=== PATIENT | male | born 1990 | race Caucasian/White ===

== ENCOUNTER → 2022-09-08 08:50 | Outpatient (CLI) | payer MEDICARE, MEDICAID, SELFPAY | PROVIDERS: PCP Family Medicine; Visit Provider Physician Assistant Medical | DX: J02.9 Acute pharyngitis, unspecified (principal) | CPT/HCPCS: 87070 ==

== ENCOUNTER → 2022-09-20 08:46 | Outpatient (CLI) | payer MEDICARE, MEDICAID, SELFPAY ==
[2022-09-20 19:37] LABS: Alanine Aminotransferase 67 IU/L (<50); Albumin 3.9 g/dL (3.5-5.0); Albumin Globulin Ratio 1.3 (1.0-2.8); Alkaline Phosphatase 57 U/L (38-126); Aspartate Aminotransferase 39 IU/L (17-59); BUN Creatinine Ratio 17.2 (6-22); Bilirubin Total 0.6 mg/dL (0.2-1.3); Blood Urea Nitrogen 15 mg/dL (9-20); Calcium 9.1 mg/dL (8.4-10.2); Carbon Dioxide 29 mmol/L (22-32); Chloride 104 mmol/L (98-107); Cholesterol 183 mg/dL (140-199); Estimated Glomerular Filt Rate > 60 mL/min (>60); Globulin 2.9 g/dL (1.7-4.1); Glucose 123 mg/dL (70-100); HDL Cholesterol 38 mg/dL (40-60); HEMOLYSIS < 15 (0-50); LDL Cholesterol Calculated 113 mg/dL (<100); Potassium 4.6 mmol/L (3.4-5.1); Sodium 138 mmol/L (137-145); Total Protein 6.8 g/dL (6.3-8.2); Triglycerides 158 mg/dL (35-150); Uric Acid 7.4 mg/dL (3.5-8.5)
[2022-09-20 19:41] LABS: Add Manual Diff / Slide Review NO; Basophils Absolute Auto 100 /uL (0-100); Basophils Percent Auto 1.1 % (0-2); Eosinophils Absolute Auto 200 /uL (0-450); Eosinophils Percent Auto 2.9 % (2-4); Hematocrit 42.7 % (41-53); Hemoglobin 14.5 g/dL (13.5-17.5); Lymphocytes Absolute Auto 2600 /uL (1100-4500); Lymphocytes Percent Auto 33.2 % (25-40); Mean Corpuscular HGB Conc 33.9 % (30-36); Mean Corpuscular Volume 82.6 fL (80-100); Monocytes Absolute Auto 600 /uL (0-900); Monocytes Percent Auto 7.6 % (3-14); Neutrophils Absolute Auto 4300 /uL (1500-7000); Neutrophils Percent Auto 55.2 % (50-75); Platelet Count 285 X10^3/uL (150-400); Red Blood Cell Count 5.18 X10^6/uL (4.5-5.9); Red Cell Distribution Width 13.1 % (11.6-14.8); White Blood Cell Count 7.9 X10^3/uL (4.5-11.0)
== END ==
PROVIDERS: PCP Family Medicine; Visit Provider Family Medicine
DX: Z13.6 Encounter for screening for cardiovascular disorders (principal); J45.20 Mild intermittent asthma, uncomplicated; Z80.0 Family history of malignant neoplasm of digestive organs; Z83.3 Family history of diabetes mellitus
CPT/HCPCS: 80053; 80061; 83036; 84550; 85025

== ENCOUNTER → 2023-01-04 11:16 | Outpatient (CLI) | payer MEDICARE, MEDICAID, SELFPAY ==
[2023-01-04 20:26] LABS: Alanine Aminotransferase 33 IU/L (<50); Albumin 4.1 g/dL (3.5-5.0); Albumin Globulin Ratio 1.5 (1.0-2.8); Alkaline Phosphatase 52 U/L (38-126); Aspartate Aminotransferase 34 IU/L (17-59); BUN Creatinine Ratio 17.9 (6-22); Bilirubin Total 0.6 mg/dL (0.2-1.3); Blood Urea Nitrogen 20 mg/dL (9-20); Carbon Dioxide 30 mmol/L (22-32); Chloride 104 mmol/L (98-107); Cholesterol 198 mg/dL (140-199); Estimated Glomerular Filt Rate > 60 mL/min (>60); Globulin 2.7 g/dL (1.7-4.1); Glucose 100 mg/dL (70-100); HDL Cholesterol 40 mg/dL (40-60); HEMOLYSIS < 15 (0-50); LDL Cholesterol Calculated 125 mg/dL (<100); Potassium 4.2 mmol/L (3.4-5.1); Sodium 140 mmol/L (137-145); Total Protein 6.8 g/dL (6.3-8.2); Triglycerides 163 mg/dL (35-150)
[2023-01-04 20:54] LABS: TSH w/ Reflex to FT4 0.46 uIU/mL (0.47-4.68)
[2023-01-04 21:14] LABS: Creatinine Urine Random 241.6 mg/dL
[2023-01-04 21:19] LABS: Microalbumi Creatinin Ratio Ur 6.2 ug/mg CR (<30); Microalbumin Urine Random 1.5 mg/dL (0-1.6)
[2023-01-05 22:07] LABS: x Labcorp Estim. Avg Glu (eAG) 128 mg/dL (.); x Labcorp Hemoglobin A1c 6.1 % (4.8-5.6)
== END ==
PROVIDERS: PCP Family Medicine; Visit Provider Family Medicine
DX: E11.65 Type 2 diabetes mellitus with hyperglycemia (principal); I10 Essential (primary) hypertension; E78.2 Mixed hyperlipidemia; R79.89 Other specified abnormal findings of blood chemistry
CPT/HCPCS: 80053; 80061; 82043; 82570; 83036; 84439; 84443

== ENCOUNTER → 2023-03-26 15:49 | Outpatient (CLI) | payer MEDICARE, MEDICAID, SELFPAY | PROVIDERS: PCP Family Medicine; Visit Provider Family Medicine | DX: R07.0 Pain in throat (principal) | CPT/HCPCS: 87070; 87077; 87147 ==

== ENCOUNTER → 2023-04-16 13:26 | Outpatient (CLI) | payer MEDICARE, MEDICAID, SELFPAY ==
[2023-04-16 19:20] LABS: Hemoglobin A1C% w Est Avg Glu 6.1 % (4.0-6.0)
[2023-04-16 19:21] LABS: HEMOLYSIS < 15 (0-50); Sodium 140 mmol/L (137-145)
[2023-04-16 19:23] LABS: Blood Urea Nitrogen 18 mg/dL (9-20); Calcium 9.6 mg/dL (8.4-10.2); Carbon Dioxide 31 mmol/L (22-32); Chloride 103 mmol/L (98-107); Cholesterol 211 mg/dL (140-199); Estimated Glomerular Filt Rate > 60 mL/min (>60); Glucose 93 mg/dL (70-100); HDL Cholesterol 37 mg/dL (40-60); LDL Cholesterol Calculated 110 mg/dL (<100); Potassium 4.1 mmol/L (3.4-5.1); Triglycerides 322 mg/dL (35-150)
[2023-04-16 19:49] LABS: TSH w/ Reflex to FT4 0.54 uIU/mL (0.47-4.68)
== END ==
PROVIDERS: PCP Family Medicine; Visit Provider Family Medicine
DX: E11.9 Type 2 diabetes mellitus without complications (principal); E11.65 Type 2 diabetes mellitus with hyperglycemia; I10 Essential (primary) hypertension; E78.2 Mixed hyperlipidemia
CPT/HCPCS: 80048; 80061; 83036; 84443

== ENCOUNTER → 2023-10-19 15:02 | Outpatient (CLI) | payer MEDICARE, SELFPAY ==
--- NOTE | 2023-10-19 15:06 | DI.MRI.S_ITS ---
PROCEDURE: MR HEAD/BRAIN WO/W CON INDICATIONS: Syncopal versus seizure disorder TECHNIQUE: Noncontrast axial T1 spin echo, axial T2 fast spin echo, sagittal and axial FLAIR, coronal T2 fast spin echo, axial gradient echo, axial diffusion and ADC through the brain. After the administration of contrast, axial and coronal and sagittal 3D VIBE or T1 spin echo with fat saturation through the brain. COMPARISON: None. FINDINGS: Image quality: Excellent. CSF Spaces: Basal cisterns are patent. No extra-axial fluid collections. Ventricles are normal in size and shape. Brain: No midline shift. No intracranial bleeds or masses. No abnormal intracranial enhancement. The brainstem appears normal. Diffusion-weighted images demonstrate no acute infarct. No chronic ischemic insults. Normal intravascular flow voids are present. Mild motion is present through the hippocampi. However, they are grossly symmetrical without abnormal signal, enhancement or mass. Skull and face: Calvarial marrow is normal in signal. Orbits appear normal. Sinuses: Sinuses and mastoids appear clear. IMPRESSION: 1. No acute intracranial process. Dictated by: Rosa Dominguez M.D. on 10/19/2023 at 17:14 Approved by: Rosa Dominguez M.D. on 10/19/2023 at 17:15
== END ==
PROVIDERS: PCP Family Medicine; Referring Provider Family Medicine; Visit Provider Family Medicine
DX: R55 Syncope and collapse (principal); F32.9 Major depressive disorder, single episode, unspecified; E11.9 Type 2 diabetes mellitus without complications; I10 Essential (primary) hypertension; R79.89 Other specified abnormal findings of blood chemistry
CPT/HCPCS: 70553; A9579

== ENCOUNTER → 2023-10-24 14:18 | Outpatient (CLI) | payer MEDICARE, SELFPAY ==
[2023-10-24 19:52] LABS: Alanine Aminotransferase 50 IU/L (<50); Albumin 4.8 g/dL (3.5-5.0); Albumin Globulin Ratio 1.8 (1.0-2.8); Alkaline Phosphatase 58 U/L (38-126); Aspartate Aminotransferase 33 IU/L (17-59); BUN Creatinine Ratio 22.4 (6-22); Bilirubin Total 0.6 mg/dL (0.2-1.3); Blood Urea Nitrogen 22 mg/dL (9-20); Calcium 10.1 mg/dL (8.4-10.2); Carbon Dioxide 25 mmol/L (22-32); Chloride 107 mmol/L (98-107); Estimated Glomerular Filt Rate > 60 mL/min (>60); Globulin 2.6 g/dL (1.7-4.1); Glucose 111 mg/dL (70-100); HEMOLYSIS < 15 (0-50); Potassium 4.4 mmol/L (3.4-5.1); Sodium 142 mmol/L (137-145); Total Protein 7.4 g/dL (6.3-8.2)
[2023-10-24 19:57] LABS: Add Manual Diff / Slide Review NO; Basophils Absolute Auto 100 /uL (0-100); Basophils Percent Auto 0.5 % (0-2); Eosinophils Absolute Auto 300 /uL (0-450); Hematocrit 44.5 % (41-53); Lymphocytes Absolute Auto 3500 /uL (1100-4500); Mean Corpuscular HGB Conc 33.7 % (30-36); Mean Corpuscular Hemoglobin 27.8 PG (26-34); Mean Corpuscular Volume 82.5 fL (80-100); Monocytes Absolute Auto 700 /uL (0-900); Monocytes Percent Auto 5.3 % (3-14); Neutrophils Absolute Auto 8400 /uL (1500-7000); Neutrophils Percent Auto 65.2 % (50-75); Platelet Count 332 X10^3/uL (150-400); Red Blood Cell Count 5.39 X10^6/uL (4.5-5.9); Red Cell Distribution Width 12.9 % (11.6-14.8); White Blood Cell Count 12.9 X10^3/uL (4.5-11.0)
[2023-10-24 20:15] LABS: Hemoglobin A1C% w Est Avg Glu 6.2 % (4.0-6.0)
[2023-10-24 20:16] LABS: Creatinine Urine Random 173.8 mg/dL
[2023-10-24 20:20] LABS: Microalbumin Urine Random 1.4 mg/dL (0-1.6)
[2023-10-24 21:34] LABS: TSH w/ Reflex to FT4 1.45 uIU/mL (0.47-4.68)
== END ==
PROVIDERS: PCP Family Medicine; Visit Provider Family Medicine
DX: R55 Syncope and collapse (principal); I10 Essential (primary) hypertension; E11.9 Type 2 diabetes mellitus without complications; F32.9 Major depressive disorder, single episode, unspecified; R79.89 Other specified abnormal findings of blood chemistry
CPT/HCPCS: 80053; 82043; 82570; 83036; 84443; 85025

== ENCOUNTER 2025-05-01 10:40 | Emergency (ER) | payer BC, SELFPAY ==
[2025-05-01 10:53] VITALS: BP 176/104; PULSE 56; RESP 15; TEMP 36.9; O2SAT 98; BMI 42.8
--- NOTE | 2025-05-01 11:18 | ED_ITS ---
HPI - Abdominal Pain <Bobbi Tapia PA-C - Last Filed: 05/01/25 16:31> General Chief Complaint: Abdominal Pain Stated Complaint: Gallbladder pain. send from PCP had US Yesterday Time Seen by Provider: 05/01/25 10:55 Mode of arrival: Ambulatory History of Present Illness HPI narrative: Mr. Lozano is a pleasant 34-year-old gentleman with a past medical history of asthma, controlled T2 dm, HTN, depression and anxiety who presents to the emergency department for right upper quadrant abdominal pain, nausea, vomiting, diarrhea x5 days. Patient states that he saw his PCP yesterday on [facility], he had an abdominal ultrasound performed which revealed No abnormality seen in the ultrasound of the abdomen with all the standard structures visualized, except for ultrasound Steinberg's sign . Patient was advised to come to the emergency department for advanced imaging and evaluation. Patient states that when he woke up this morning he had worsening right upper quadrant abdominal pain and an episode of bilious vomiting. He reports that he has also been experiencing nonbloody diarrhea for the last few days. Denies chest pain, shortness of breath, documented fevers tobacco use, alcohol use, drug use, dysuria, hematuria, flank pain, radiation of abdominal pain, prior abdominal surgeries. He does report feeling intermittently warm and chills over the last few days. He denies any prior abdominal surgeries. States he is allergic to codeine. He has not had anything to eat since 7:00 p.m. last night, this morning he only had some water and Metamucil. Related Data Home Medications ?Medication ?Instructions ?Recorded ?Confirmed escitalopram oxalate 10 mg tablet 10 mg PO .PRN 04/30/25 Previous Rx's ?Medication ?Instructions ?Recorded albuterol sulfate 90 mcg/actuation 2 puff inhalation Q 6H PRN 04/30/24 aerosol inhaler shortness of breath or wheez ing #8.5 grams ondansetron 4 mg disintegrating 4 mg PO Q8H PRN nausea and 05/01/25 tablet vomiting #20 tabs Allergies Allergy/AdvReac Type Severity Reaction Status Date / Time codeine Allergy Mild Hives Verified 05/01/25 10:53 Review of Systems <Bobbi Tapia PA-C - Last Filed: 05/01/25 16:31> Review of Systems ROS Unobtainable: All systems reviewed & are unremarkable except as noted in HPI and below Patient History <Bobbi Tapia PA-C - Last Filed: 05/01/25 16:31> Medical History Type 2 diabetes mellitus, controlled Hypertension, essential BMI greater than 40 Hyperlipidemia, mixed Elevated LFTs Family history of colon cancer Asthma (~2005) Gout (~2015) Surgical History Anesthesia [place] teeth removed (~07/14/21) Family History Mother Mental health problem Cervical cancer Colorectal cancer Renal cancer Bone cancer History of bipolar disorder Smoker Adrenal cancer Grandfather Cancer Hyperlipidemia Grandmother Cancer Mental health problem Social History Smoking Status: Unknown if ever smoked Smoking Status: Unknown if ever smoked Exam <Bobbi Tapia PA-C - Last Filed: 05/01/25 16:31> Narrative Exam Narrative: GENERAL: 34 year old patient appears stated age. Overweight patient, in no acute distress. HEAD: Atraumatic. Normocephalic. EYES: No scleral icterus. No injection or drainage. NECK: Trachea midline. Cervical ROM intact. CARDIOVASCULAR: Regular rate and rhythm. RESPIRATORY: Nonlabored respirations. Speaking in clear, full sentences. Clear to auscultation. Breath sounds equal bilaterally. No wheezes, rales, or rhonchi. GASTROINTESTINAL: Positive Steinberg's sign, there is also epigastric tenderness. No rebound or guarding. No McBurney's point tenderness. Bowel sounds are present. BACK: No CVA tenderness. NEURO: AOx3. Clear speech. Moves all 4 extremities appropriately. SKIN: No rash or erythema of visible areas Initial Vital Signs Initial Vital Signs: Vital Signs Temperature 98.5 F 05/01/25 10:53 Pulse Rate 56 L 05/01/25 10:53 Respiratory Rate 15 05/01/25 10:53 Blood Pressure 176/104 H 05/01/25 10:53 Pulse Oximetry 98 05/01/25 10:53 Oxygen Delivery Method Room Air 05/01/25 10:53 <Kimberli Grande MD - Last Filed: 05/02/25 07:11> Initial Vital Signs Initial Vital Signs: Vital Signs Temperature 98.5 F 05/01/25 10:53 Pulse Rate 56 L 05/01/25 10:53 Respiratory Rate 15 05/01/25 10:53 Blood Pressure 176/104 H 05/01/25 10:53 Pulse Oximetry 98 05/01/25 10:53 Oxygen Delivery Method Room Air 05/01/25 10:53 Course <Bobbi Tapia PA-C - Last Filed: 05/01/25 16:31> Orders Ordered: Discontinued Medications Sodium Chloride (Normal Saline 0.9%) 1,000 mls @ 1,000 mls/hr IV BOLUS ONE Stop: 05/01/25 12:18 Last Infusion: 05/01/25 12:57 Dose: Infused Documented By: Admin: 05/01/25 11:38 Dose: 1,000 mls/hr Documented By: MAITE Ketorolac Tromethamine (Ketorolac 30 Mg/Ml Vial) 15 mg IV NOW ONE Stop: 05/01/25 11:20 Last Admin: 05/01/25 11:38 Dose: 15 mg Documented By: MAITE Ondansetron HCl (Ondansetron 4 Mg/2 Ml Inj) 4 mg IV NOW ONE Stop: 05/01/25 11:20 Last Admin: 05/01/25 11:39 Dose: 4 mg Documented By: MAITE Ondansetron HCl (Ondansetron 4 Mg Odt) 4 mg SL NOW ONE Stop: 05/01/25 13:22 Last Admin: 05/01/25 13:34 Dose: 4 mg Documented By: BRIDGET Vital Signs Vital signs: Vital Signs - 8 hr 05/01/25 10:53 05/01/25 14:00 Temperature 98.5 F Pulse Rate 56 L 57 L Respiratory Rate 15 16 Blood Pressure 176/104 H 159/91 H Pulse Oximetry 98 97 Oxygen Delivery Method Room Air Room Air <Kimberli Grande MD - Last Filed: 05/02/25 07:11> Orders Ordered: Discontinued Medications Sodium Chloride (Normal Saline 0.9%) 1,000 mls @ 1,000 mls/hr IV BOLUS ONE Stop: 05/01/25 12:18 Last Infusion: 05/01/25 12:57 Dose: Infused Documented By: Admin: 05/01/25 11:38 Dose: 1,000 mls/hr Documented By: CTS Ketorolac Tromethamine (Ketorolac 30 Mg/Ml Vial) 15 mg IV NOW ONE Stop: 05/01/25 11:20 Last Admin: 05/01/25 11:38 Dose: 15 mg Documented By: CTS Ondansetron HCl (Ondansetron 4 Mg/2 Ml Inj) 4 mg IV NOW ONE Stop: 05/01/25 11:20 Last Admin: 05/01/25 11:39 Dose: 4 mg Documented By: CTS Ondansetron HCl (Ondansetron 4 Mg Odt) 4 mg SL NOW ONE Stop: 05/01/25 13:22 Last Admin: 05/01/25 13:34 Dose: 4 mg Documented By: BRIDGET Vital Signs Vital signs: Vital Signs - 8 hr 05/01/25 10:53 05/01/25 14:00 Temperature 98.5 F Pulse Rate 56 L 57 L Respiratory Rate 15 16 Blood Pressure 176/104 H 159/91 H Pulse Oximetry 98 97 Oxygen Delivery Method Room Air Room Air MDM - Abdominal Pain <Bobbi Tapia PA-C - Last Filed: 05/01/25 16:31> Medical Records Attestation: I reviewed the patient's medical records. Medical records narrative: PCP note from yesterday: Ultrasound abdomen limited Indication Right upper quadrant abdominal pain Technique A sonogram of the abdomen was performed assessing grayscale appearance and color flow Doppler Comparisons None Findings The liver is normal in echogenicity and size. Maximum dimension of the liver is 12.5 cm No focal lesions are seen. The hepatic veins and portal veins are patent with the appropriate directional flow. No intrahepatic ductal dilatation is seen. The gallbladder is distended. It has normal wall thickness less than 3 mm. There are no gallstones or biliary sludge. There is no pericholecystic fluid. Sonographic Steinberg's sign is present Biliary ducts Intrahepatic bile ducts are nondilated. Extrahepatic bile duct caliber measures 4 mm in diameter. Normal is 6-7 mm is in diameter or less. Maximum normal diameter is 10 mm the last status post cholecystectomy. Pancreas Visualized portions of the pancreas are sonographically normal Right kidney The right kidney is normal in size and echotexture. Right kidney measures 6.5 cm long axis There is no hydronephrosis or nephrolithiasis. There are no cystic or solid masses. Left kidney The left kidney is normal in size and echotexture. Right kidney measures 6 cm long axis There is no hydronephrosis or nephrolithiasis. There are no cystic or solid masses. Spleen Spleen is normal in size and homogeneous in echotexture Maximum dimension of the spleen is cm IVC Intrahepatic inferior vena cava is patent Impression No abnormality seen in the ultrasound of the abdomen with all the standard structures visualized, except for ultrasound Steinberg's sign We discussed the findings. On that he does not have any gallbladder disease considering his symptoms We discussed the difficulty of making diagnosis with abdominal pain. Advised today seek ED evaluation for advanced imaging. They plan to go to [place] and be seen at [facility] ED. Lab Data 05/01/25 11:10 05/01/25 11:10 Labs: Lab Results 05/01/25 Range/Units 11:10 WBC 9.4 (4.5-11.0) X10^3/uL RBC 5.25 (4.5-5.9) X10^6/uL Hgb 14.8 (13.5-17.5) g/dL Hct 43.6 (41-53) % MCV 82.9 (80-100) fL MCH 28.3 (26-34) PG MCHC 34.1 (30-36) % RDW 13.2 (11.6-14.8) % Plt Count 293 (150-400) X10^3/uL Neut % (Auto) 66.9 (50-75) % Lymph % (Auto) 24.7 L (25-40) % [place] % (Auto) 5.5 (3-14) % Eos % (Auto) 2.3 (2-4) % Baso % (Auto) 0.6 (0-2) % Neut # (Auto) 6300 (7544-3061) /uL Lymph # (Auto) 2300 (7371-2177) /uL [place] # (Auto) 500 (0-900) /uL Eos # (Auto) 200 (0-450) /uL Baso # (Auto) 100 (0-100) /uL PT 11.7 (9.4-12.5) SECONDS INR 1.0 (0.9-1.3) APTT 32 (25.1-36.5) SECONDS Sodium 139 (137-145) mmol/L Potassium 4.2 (3.4-5.1) mmol/L Chloride 105 (98-107) mmol/L Carbon Dioxide 25 (22-32) mmol/L BUN 17 (9-20) mg/dL Creatinine 0.91 (0.66-1.25) mg/dL Estimated GFR > 60 (>60) mL/min BUN/Creatinine Ratio 18.7 (6-22) Glucose 117 H (70-99) mg/dL Calcium 9.4 (8.4-10.2) mg/dL Total Bilirubin 0.8 (0.2-1.3) mg/dL AST 39 (17-59) IU/L ALT 55 H (<50) IU/L Alkaline Phosphatase 58 (38-126) U/L Total Protein 7.8 (6.3-8.2) g/dL Albumin 4.9 (3.5-5.0) g/dL Globulin 2.9 (1.7-4.1) g/dL Albumin/Globulin Ratio 1.7 (1.0-2.8) Lipase 163 (23-300) U/L Imaging Data CT scan - abdomen/pelvis: Radiologist's Impression: PROCEDURE: CT ABDOMEN PELVIS W CON INDICATIONS: RUQ pain, N/V/D TECHNIQUE: After the administration of intravenous contrast, axial sections acquired from the lung bases to the pubic symphysis. Coronal and sagittal reformats were performed. For radiation dose reduction, the following was used: automated exposure control, adjustment of mA and/or kV according to patient size. COMPARISON: None. FINDINGS: Image quality: Diagnostic. Lower Chest: No significant findings. ABDOMEN: Liver: No solid mass. Moderate hepatic steatosis. Gallbladder: No radiopaque gallstones or wall thickening. Biliary ducts: No biliary dilation. Pancreas: No ductal dilation. Spleen: Size is within normal limits. Adrenal Glands: No adrenal nodules. Kidneys and Ureters: No hydronephrosis. No solid mass. No complex renal cystic lesion which requires follow up. Stomach and Bowel: There is no bowel obstruction. No abnormal bowel wall thickening or mesenteric fat stranding. Appendix is visualized and is within normal limits. No abscess collection. Peritoneum: No abnormal intraperitoneal fluid. No free air. Ventral Wall: No significant ventral hernia. Abdominal Nodes: No retroperitoneal or mesenteric adenopathy by size criteria. Vessels: Aorta and inferior vena cava are normal in size. PELVIS: Pelvic Organs: Unremarkable. Bladder: No bladder wall thickening, accounting for underdistention. Pelvic Nodes: No enlarged lymph nodes. Miscellaneous: No inguinal hernias are seen. Bones: No aggressive osseous abnormality. IMPRESSION: 1. Normal appearing gallbladder. No CT evidence of acute cholecystitis. 2. Moderate hepatic steatosis. 3. Normal appendix. No bowel obstruction or abnormal bowel wall thickening. No free fluid or free air. Dictated by: Lan Burnette M.D. on 05/01/2025 at 11:52 Approved by: Lan Burnette M.D. on 05/01/2025 at 12:03 [facility] Narrative Medical decision making narrative: 34-year-old gentleman with a past medical history of asthma, controlled T2 dm, HTN, depression and anxiety who presents to the emergency department for right upper quadrant abdominal pain, nausea, vomiting, diarrhea x5 days. Patient states that he saw his PCP yesterday on [facility], he had an abdominal ultrasound performed which revealed No abnormality seen in the ultrasound of the abdomen with all the standard structures visualized, except for ultrasound Steinberg's sign . Patient was advised to come to the emergency department for advanced imaging and evaluation. Differential diagnosis includes but is not limited to cholecystitis, biliary colic, gastroenteritis, gastritis, pancreatitis, colitis, etc. On exam patient is in no acute distress, nontoxic appearing, vital signs appropriate except for elevated blood pressure 176/104. Patient is experiencing 5 days of right upper quadrant pain nausea vomiting and diarrhea, he had an outpatient ultrasound yesterday which did reveal some gallbladder distention, Steinberg's sign but not consistent with acute cholecystitis, due to his persistent symptoms he was sent to the ED for more advanced imaging. On exam he does have right upper quadrant epigastric tenderness, no rebound or guarding, bowel sounds are present. We will treat with IV fluids, Zofran, Toradol, obtain CBC CMP lipase coags and CT abdomen and pelvis with IV contrast. CT reveals Normal-appearing gallbladder. No CT evidence of acute cholecystitis. Moderate hepatic steatosis. Normal appendix. No bowel obstruction or abnormal bowel wall thickening. No free fluid or free air. Labs reveal normal WBC count 9.4, hemoglobin 14.8 hematocrit 43.6. Platelets 293. Normal coags. Sodium 139 potassium 4.2, BUN 17 creatinine 0.91. Normal LFTs with the exception of very mildly elevated ALT 55. Normal lipase 163. 1245: On Re exam of patient his pain has improved significantly, abdominal exam is benign with only mild tenderness in the right upper quadrant. Nausea improved as well. Discussed case with the attending ED physician, will consult gen surg. 1310: Spoke with general surgery Dr. Bartlett. Reviewed the patient's imaging findings, lab findings and physical exam. At this time patient's workup and exam is not consistent with acute cholecystitis, gen surg discussed that he could be experiencing biliary dyskinesia and he could benefit from a HIDA scan, this does not need to be done emergently today. Patient can follow up with General surgery or PCP can order HIDA scan and determine the need for general surgery intervention based on this study. I did attempt to call nuclear medicine however not able to get ahold of them or schedule at this time. Discussed surgery consultation, imaging and lab work with the patient. He did not provide urine sample but declines any urinary concerns. He feels much better. Discussed diagnosis of possible biliary dyskinesia among other things such as gastroenteritis. Recommended rest, hydration, bland diet and parents Zofran at this time and follow up with his PCP for HIDA scan or follow up with gen surgery. Discussed strict ER return precautions. Patient verbalized understanding all information and ER return precautions, abdominal exam is benign, he is tolerating p.o. ambulatory and stable for discharge home, repeat BP improved. <Kimberli Grande MD - Last Filed: 05/02/25 07:11> Lab Data Labs: Lab Results 05/01/25 Range/Units 11:10 WBC 9.4 (4.5-11.0) X10^3/uL RBC 5.25 (4.5-5.9) X10^6/uL Hgb 14.8 (13.5-17.5) g/dL Hct 43.6 (41-53) % MCV 82.9 (80-100) fL MCH 28.3 (26-34) PG MCHC 34.1 (30-36) % RDW 13.2 (11.6-14.8) % Plt Count 293 (150-400) X10^3/uL Neut % (Auto) 66.9 (50-75) % Lymph % (Auto) 24.7 L (25-40) % [place] % (Auto) 5.5 (3-14) % Eos % (Auto) 2.3 (2-4) % Baso % (Auto) 0.6 (0-2) % Neut # (Auto) 6300 (7368-5488) /uL Lymph # (Auto) 2300 (5116-0277) /uL [place] # (Auto) 500 (0-900) /uL Eos # (Auto) 200 (0-450) /uL Baso # (Auto) 100 (0-100) /uL PT 11.7 (9.4-12.5) SECONDS INR 1.0 (0.9-1.3) APTT 32 (25.1-36.5) SECONDS Sodium 139 (137-145) mmol/L Potassium 4.2 (3.4-5.1) mmol/L Chloride 105 (98-107) mmol/L Carbon Dioxide 25 (22-32) mmol/L BUN 17 (9-20) mg/dL Creatinine 0.91 (0.66-1.25) mg/dL Estimated GFR > 60 (>60) mL/min BUN/Creatinine Ratio 18.7 (6-22) Glucose 117 H (70-99) mg/dL Calcium 9.4 (8.4-10.2) mg/dL Total Bilirubin 0.8 (0.2-1.3) mg/dL AST 39 (17-59) IU/L ALT 55 H (<50) IU/L Alkaline Phosphatase 58 (38-126) U/L Total Protein 7.8 (6.3-8.2) g/dL Albumin 4.9 (3.5-5.0) g/dL Globulin 2.9 (1.7-4.1) g/dL Albumin/Globulin Ratio 1.7 (1.0-2.8) Lipase 163 (23-300) U/L Discharge Plan Departure Patient Disposition: Home Clinical Impression: Abdominal pain, RUQ, Nausea vomiting and diarrhea Instructions: DI for Viral Gastroenteritis -- Adult, DI for Nonalcoholic Fatty Liver Disease Activity Restrictions/Additional Instructions: Dear Mr. Stillony, Thank you for coming to the emergency department. Today you were evaluated for right upper quadrant abdominal pain, nausea, vomiting and diarrhea. Your workup today did not reveal acute cholecystitis also known as acute gallbladder attack, and I spoke with our general surgeon Dr. Bartlett. You may follow up with him, however you may also benefit from having a HIDA scan ordered by your primary care doctor for further evaluation of your gallbladder. Please rest, focus on hydration with water, electrolyte beverages, and eat a bland diet. Avoid a fatty diet as this can exacerbate gallbladder related pain. If you do develop new or worsening symptoms, fevers, yellowing of the skin, persistent vomiting, severe pain or any other concerns we would like you to return to the emergency department. Please follow up with your primary care doctor within the next 2-3 days for ER follow-up. (If you do not have a PCP you can call [phone]. to schedule an appointment with an [facility] Primary Care Provider) IF YOU DEVELOP ANY NEW OR WORSENING SYMPTOMS, RETURN TO THE ER! Please read the attached instructions, they highlight more specific treatments and interventions for you at home. Thank you for letting me participate in your care, Bobbi Tapia PA-C Prescriptions: New ondansetron 4 mg tablet,disintegrating 4 mg PO Q8H PRN (Reason: nausea and vomiting) Qty: 20 0RF No Action albuterol sulfate 90 mcg/actuation HFA aerosol inhaler 2 puff inhalation Q6H PRN (Reason: shortness of breath or wheezing) Qty: 8.5 0RF escitalopram oxalate 10 mg tablet 10 mg PO .PRN Referrals: Michoacano Bartlett MD [Physician, General Surgery] Referral Note: biliary dyskinesia Valdo Rojo MD [Primary Care Provider, Family Practice] Stand Alone Forms: Patient Portal/API, Work Release Note ED Sign-out <Kimberli Grande MD - Last Filed: 05/02/25 07:11> Cosign ED Attending Иванature Attestation: I was available for consultation during this patient's emergency department visit. This chart is signed by myself for administrative purposes only. I did not have direct contact with this patient during this visit. They were seen independently by the APC.
[2025-05-01 11:33] LABS: INR 1.0 (0.9-1.3); Prothrombin Time 11.7 SECONDS (9.4-12.5)
[2025-05-01 11:36] LABS: PTT Partial Thromboplastin Tim 32 SECONDS (25.1-36.5)
[2025-05-01 11:38] LABS: Alanine Aminotransferase 55 IU/L (<50); Albumin 4.9 g/dL (3.5-5.0); Albumin Globulin Ratio 1.7 (1.0-2.8); Alkaline Phosphatase 58 U/L (38-126); Blood Urea Nitrogen 17 mg/dL (9-20); Calcium 9.4 mg/dL (8.4-10.2); Carbon Dioxide 25 mmol/L (22-32); Chloride 105 mmol/L (98-107); Estimated Glomerular Filt Rate > 60 mL/min (>60); Globulin 2.9 g/dL (1.7-4.1); Glucose 117 mg/dL (70-99); HEMOLYSIS < 15 (0-50); Lipase 163 U/L (23-300); Potassium 4.2 mmol/L (3.4-5.1); Sodium 139 mmol/L (137-145); Total Protein 7.8 g/dL (6.3-8.2)
[2025-05-01] MEDS: SODIUM CHLORIDE 0.9% 1,000 ML 1000 ML IV (11:38)
[2025-05-01] MEDS: KETOROLAC 30 MG/ML VIAL 15 MG IV (11:38)
[2025-05-01] MEDS: ONDANSETRON 4 MG/2 ML INJ IV (11:39)
[2025-05-01 11:47] LABS: Add Manual Diff / Slide Review NO; Hematocrit 43.6 % (41-53); Hemoglobin 14.8 g/dL (13.5-17.5); Lymphocytes Absolute Auto 2300 /uL (1100-4500); Mean Corpuscular HGB Conc 34.1 % (30-36); Mean Corpuscular Hemoglobin 28.3 PG (26-34); Mean Corpuscular Volume 82.9 fL (80-100); Platelet Count 293 X10^3/uL (150-400)
[2025-05-01] MEDS: ONDANSETRON 4 MG ODT SL (13:34)
[2025-05-01 14:00] VITALS: BP 159/91; PULSE 57; RESP 16; O2SAT 97
== END 2025-05-01 14:01 | disposition home or self-care (01) ==
PROVIDERS: Emergency Provider Physician Assistant; PCP Family Medicine
DX: R10.11 Right upper quadrant pain (principal); R11.2 Nausea with vomiting, unspecified; R19.7 Diarrhea, unspecified
CPT/HCPCS: 36415; 74177; 80053; 83690; 85025; 85610; 85730; 99284; J1885; J2405; J7030; Q9967